=== PATIENT | female | born 1960 | race Hispanic/Latino ===

== ENCOUNTER → 2020-05-03 | Outpatient (CLI) | payer OTHER ==
--- NOTE | 2020-05-03 11:52 | Diagnostic Imaging Report ---
Exam: KUB - 2 views Indication: Constipation Comparison: CT abdomen pelvis of 06/30/2019 Findings: Nonobstructive bowel gas pattern. No evidence of free intraperitoneal air. Normal stool burden throughout the colon. No evidence of abnormal calcification. No acute bony abnormality. Impression: Normal stool burden throughout the colon. Signed by: Divya Canada MD on 05/03/2020 11:49 AM
== END ==
LOC: RAD 11:00
PROVIDERS: ATTEND Internal Medicine
DX: K59.00 Constipation, unspecified (principal)
CPT/HCPCS: 74018

== ENCOUNTER → 2024-10-02 | Day surgery (SDC) | payer OTHER ==
[~2024-10-02] MED LIST: LIDOCAINE HCL 2% LOCAL INJ 5 ML SDV VIAL INJ ONE; LOSARTAN-HCTZ1 EAC2 PO; MAGNESIUM OXID400 MG PO; METOPROLOL SUCC50 MG PO; OMEGA 3 1,0001 EACH PO; OMEPRAZOLE40 MG PO; PRAVASTATIN SOD20 MG PO; PROPOFOL IV EMULSION 50 ML IV ONE; VITAMIN C1000 MG PO; VITAMIN D31250 MCG PEG
[2024-10-02] MEDS: LACTATED RINGER'S 1,000 ML ONE (12:27)
[2024-10-02 16:03] VITALS: TEMP 97.1
[2024-10-02 16:25] VITALS: BP 126/71; PULSE 66; RESP 18; O2SAT 100
== END | disposition home or self-care (01) ==
LOC: OR 11:58
PROVIDERS: ATTEND Internal Medicine Gastroenterology
DX: R19.5 Other fecal abnormalities (principal); D12.2 Benign neoplasm of ascending colon; D12.3 Benign neoplasm of transverse colon; K63.89 Other specified diseases of intestine; K64.8 Other hemorrhoids; K21.9 Gastro-esophageal reflux disease without esophagitis; E66.9 Obesity, unspecified; I10 Essential (primary) hypertension; Z71.89 Other specified counseling; E78.00 Pure hypercholesterolemia, unspecified; M06.9 Rheumatoid arthritis, unspecified; M19.90 Unspecified osteoarthritis, unspecified site; I83.90 Asymptomatic varicose veins of unspecified lower extremity; Z01.810 Encounter for preprocedural cardiovascular examination; Z79.899 Other long term (current) drug therapy; Z68.30 Body mass index [BMI] 30.0-30.9, adult; Z71.3 Dietary counseling and surveillance
CPT/HCPCS: 45380; 45385; 93005; J2003; J2704; J7121

== ENCOUNTER → 2024-10-23 | Day surgery (SDC) | payer OTHER ==
[~2024-10-23] MED LIST changes: +HYOSCYAMINE SULFATE 0.5 MG/ML INJ ONE; +PROPOFOL IV EMULSION 10 MG/ML 20 ML VIAL ONE; -PROPOFOL IV EMULSION 50 ML IV ONE
[2024-10-23] MEDS: LACTATED RINGER'S 1,000 ML ONE (13:53)
[2024-10-23 16:28] VITALS: TEMP 98
[2024-10-23 16:55] VITALS: BP 158/87; PULSE 78; RESP 16; O2SAT 98
== END | disposition home or self-care (01) ==
LOC: OR 13:28
PROVIDERS: ATTEND Internal Medicine Gastroenterology
DX: R19.5 Other fecal abnormalities (principal); D12.4 Benign neoplasm of descending colon; D12.5 Benign neoplasm of sigmoid colon; K57.30 Diverticulosis of large intestine without perforation or abscess without bleeding; K63.89 Other specified diseases of intestine; K64.8 Other hemorrhoids; K21.9 Gastro-esophageal reflux disease without esophagitis; Z71.89 Other specified counseling; I10 Essential (primary) hypertension; M06.9 Rheumatoid arthritis, unspecified; M19.90 Unspecified osteoarthritis, unspecified site; E78.5 Hyperlipidemia, unspecified; Z79.899 Other long term (current) drug therapy; Z68.31 Body mass index [BMI] 31.0-31.9, adult; Z71.3 Dietary counseling and surveillance
CPT/HCPCS: 45385; J1980; J2003; J2704; J7121; 45378